=== PATIENT | female | born 1955 | race Caucasian/White ===

== ENCOUNTER 2025-09-12 18:28 | Emergency (ER) | payer MEDICARE, SELFPAY ==
[2025-09-12 18:32] VITALS: BP 134/84; PULSE 87; RESP 17; TEMP 36.4; O2SAT 97; BMI 29.8
--- OUTSIDE RECORDS SUMMARY | 2025-09-12 18:33 | XMS_ITS | Encounter Summary ---
Author Organization [employer] [facility] Address [address] [place] [address] Care Team Providers Care Filling Hauler Weaving Name Role Phone Antwan Brady MD Primary Care Provider Encounter Details Date Type Department Care Team (Latest Contact Info) Description [facility] SHIRT FOLDER [place] [address] [address] [address] [facility] [address] [place] [address] Kvng Suarez MD NO ADDRESS ON FILE ROUTINE BUSINESS INFORMATION MANAGER EXAMINATION (Primary Dx) Social History Tobacco Use Types Packs/Day Years Used Date Smoking Tobacco: Never Assessed Comments Unknown Sex and Gender Information Value Date Recorded Sex Assigned at Not on file Legal Sex Female 4:50 AM OR ASSISTANT Gender Identity Not on file Sexual Orientation Not on file documented as of this encounter Plan of Treatment Not on file documented as of this encounter Visit Diagnoses Diagnosis Routine gynecological examination- Primary documented in this encounter Care Teams Filling Hauler Weaving Relationship Specialty Start Date End Date Antwan Brady MD [address] [facility] [address] [place] [address] PCP - General Family Practice 07/20/14 documented as of this encounter
--- OUTSIDE RECORDS SUMMARY | 2025-09-12 18:33 | XMS_ITS | Encounter Summary ---
Author Organization [facility] Address [address] [place] [address] Care Team Providers Care Groover Operator Name Role Phone Antwan Brady MD Primary Care Provider Encounter Details Date Type Department Care Team (Latest Contact Info) Description 02/20/2007 Outpatient Historical [facility] Allergy and Asthma- [address] [place] [address] Sahil Chairez MD NO ADDRESS ON FILE Allergic Rhinitis, Cause Unspecified (Primary Dx) Social History Tobacco Use Types Packs/Day Years Used Date Smoking Tobacco: Never Assessed Comments Unknown Sex and Gender Information Value Date Recorded Sex Assigned at Not on file Legal Sex Female 4:50 AM AWS SOFTWARE DEVELOPMENT ENGINEER Gender Identity Not on file Sexual Orientation Not on file documented as of this encounter Plan of Treatment Not on file documented as of this encounter Visit Diagnoses Diagnosis Allergic rhinitis, cause unspecified- Primary documented in this encounter Care Teams Groover Operator Relationship Specialty Start Date End Date Antwan Brady MD [address] [place] [address] PCP - General Family Practice 07/20/14 documented as of this encounter
--- OUTSIDE RECORDS SUMMARY | 2025-09-12 18:33 | XMS_ITS | Encounter Summary ---
Author Organization [facility] Address [address] [place] [address] Care Team Providers Care Client Integration Manager Name Role Phone Antwan Brady MD Primary Care Provider Encounter Details Date Type Department Care Team (Latest Contact Info) Description 10/09/2007 Outpatient Historical [facility] Allergy and Asthma- [address] [place] [address] Jean Paul Mina, PAKarliC NO ADDRESS ON FILE Allergic Rhinitis, Cause Unspecified (Primary Dx); Other Diseases of Nasal Cavity and Sinuses; Other Chronic Allergic Conjunctivitis Social History Tobacco Use Types Packs/Day Years Used Date Smoking Tobacco: Never Assessed Comments Unknown Sex and Gender Information Value Date Recorded Sex Assigned at Not on file Legal Sex Female 4:50 AM TYPESETTER PERFORATOR OPERATOR Gender Identity Not on file Sexual Orientation Not on file documented as of this encounter Plan of Treatment Not on file documented as of this encounter Visit Diagnoses Diagnosis Allergic rhinitis, cause unspecified- Primary Other diseases of nasal cavity and sinuses(478.19) Other diseases of nasal cavity and sinuses Other chronic allergic conjunctivitis documented in this encounter Care Teams Client Integration Manager Relationship Specialty Start Date End Date Antwan Brady MD [address] [place] [address] [address] [place] [address] PCP - General Family Practice 07/20/14 documented as of this encounter
--- OUTSIDE RECORDS SUMMARY | 2025-09-12 18:33 | XMS_ITS | Encounter Summary ---
Author Organization [employer] [facility] Address [address] [place] [address] Care Team Providers Care Generation Technologist Name Role Phone Antwan Brady MD Primary Care Provider [phone] Encounter Details Date Type Department Care Team (Latest Contact Info) Description 07/06/2007 Outpatient Historical [facility] GAS ROLLER OPERATOR [place] [address] [address] [facility] [address] [place] [address] Kvng Suarez MD NO ADDRESS ON FILE Routine Gynecological Examination (Primary Dx); Leiomyoma of Uterus, Unspecified Social History Tobacco Use Types Packs/Day Years Used Date Smoking Tobacco: Never Assessed Comments Unknown Sex and Gender Information Value Date Recorded Sex Assigned at Not on file Legal Sex Female 4:50 AM ATTORNEY AT LAW Gender Identity Not on file Sexual Orientation Not on file documented as of this encounter Plan of Treatment Not on file documented as of this encounter Visit Diagnoses Diagnosis Routine gynecological examination- Primary Leiomyoma of uterus, unspecified documented in this encounter Care Teams Generation Technologist Relationship Specialty Start Date End Date Antwan Brady MD [address] [place] [address] [address] [place] [address] PCP - General Family Practice 07/20/14 documented as of this encounter
--- OUTSIDE RECORDS SUMMARY | 2025-09-12 18:33 | XMS_ITS | Encounter Summary ---
Author Organization [facility] Address [address] [facility] Attn: [place] [address] Care Team Providers Care Consulting Marine Engineer Name Role Phone Antwan Brady MD Primary Care Provider [phone] Encounter Details Date Type Department Care Team (Late st Contact Info) Description 06/26/2001 Outpatient Historical Kvng Suarez MD NO ADDRESS ON FILE Social History Tobacco Use Types Packs/Day Years Used Date Smoking Tobacco: Never Assessed Comments Unknown Sex and Gender Information Value Date Recorded Sex Assigned at Not on file Legal Sex Female 4:50 AM STONE DERRICKMAN AND RIGGER Gender Identity Not on file Sexual Orientation Not on file documented as of this encounter Plan of Treatment Not on file documented as of this encounter Visit Diagnoses Not on filedocumented in this encounter Care Teams Consulting Marine Engineer Relationship Specialty Start Date End Date Antwan Brady MD [address] [facility] [address] [place], [place] [address] PCP - General Family Practice 07/20/14 documented as of this encounter
--- OUTSIDE RECORDS SUMMARY | 2025-09-12 18:33 | XMS_ITS | Encounter Summary ---
Author Organization [employer] [facility] Address [address] [place] [address] Care Team Providers Care Dot Compliance Manager Name Role Phone Antwan Brady MD Primary Care Provider Encounter Details Date Type Department Care Team (Late st Contact Info) Description 06/19/2004 Outpatient Historical [facility] SOCIAL WORK FACULTY MEMBER [place] [address] [address] [address] [place] [address] Kvng Suarez MD NO ADDRESS ON FILE Social History Tobacco Use Types Packs/Day Years Used Date Smoking Tobacco: Never Assessed Comments Unknown Sex and Gender Information Value Date Recorded Sex Assigned at Not on file Legal Sex Female 4:50 AM BUFFING AND SUEDING MACHINE OPERATOR Gender Identity Not on file Sexual Orientation Not on file documented as of this encounter Plan of Treatment Not on file documented as of this encounter Visit Diagnoses Not on filedocumented in this encounter Care Teams Dot Compliance Manager Relationship Specialty Start Date End Date Antwan Brady MD [address] [place] [address] PCP - General Family Practice 07/20/14 documented as of this encounter
--- OUTSIDE RECORDS SUMMARY | 2025-09-12 18:33 | XMS_ITS | Encounter Summary ---
Author Organization [employer] [facility] Address [address] [place] [address] Care Team Providers Care Tools And Parts Attendant Name Role Phone Antwan Brady MD Primary Care Provider Encounter Details Date Type Department Care Team (Latest Contact Info) Description 06/06/1999 Outpatient Historical [facility] EKG MONITOR TECH [place] [address] [facility] [address] [facility] [address] [place] [address] Knvg Suarez MD NO ADDRESS ON FILE Gynecologic examination (Primary Dx) Social History Tobacco Use Types Packs/Day Years Used Date Smoking Tobacco: Never Assessed Comments Unknown Sex and Gender Information Value Date Recorded Sex Assigned at Not on file Legal Sex Female 4:50 AM JEWELRY POLISHER Gender Identity Not on file Sexual Orientation Not on file documented as of this encounter Plan of Treatment Not on file documented as of this encounter Visit Diagnoses Diagnosis Gynecologic examination- Primary Gynecological examination documented in this encounter Care Teams Tools And Parts Attendant Relationship Specialty Start Date End Date Antwan Brady MD [address] [facility] [address] [place] [address] PCP - General Family Practice 07/20/14 documented as of this encounter
--- OUTSIDE RECORDS SUMMARY | 2025-09-12 18:33 | XMS_ITS | Encounter Summary ---
Author Organization [facility] Address [address] [place] [address] Care Team Providers Care Target Aircraft Controller Name Role Phone Antwan Brady MD Primary Care Provider [phone] Encounter Details Date Type Department Care Team (Latest Contact Info) Description 12/16/2006 Outpatient Historical [facility] Allergy and Asthma- [address] [place] [address] Sahil Chairez MD NO ADDRESS ON FILE Chronic Rhinitis (Primary Dx) Social History Tobacco Use Types Packs/Day Years Used Date Smoking Tobacco: Never Assessed Comments Unknown Sex and Gender Information Value Date Recorded Sex Assigned at Not on file Legal Sex Female 4:50 AM COLOR RECEIVER Gender Identity Not on file Sexual Orientation Not on file documented as of this encounter Plan of Treatment Not on file documented as of this encounter Visit Diagnoses Diagnosis Chronic rhinitis- Primary documented in this encounter Care Teams Target Aircraft Controller Relationship Specialty Start Date End Date Antwan Brady MD [address] [place] [address] [place] [address] PCP - General Family Practice 07/20/14 documented as of this encounter
--- OUTSIDE RECORDS SUMMARY | 2025-09-12 18:33 | XMS_ITS | Clinical Summary ---
Author Organization [facility] [employer] [place] Address [address] [place] [address] Phone Care Team Providers Care Twx Operator Name Role Phone Antwan Brady MD Primary Care Provider Allergies No known active allergies Medications ZYRTEC PO Take by mouth. Activ e EXCEDRIN MIGRAINE PO Take by mouth. Act donavon azelastine (ASTELIN) 137 mcg Both Nostril SprAIndications :Allergic rhinitis, cause unspecified,Per ennial allergic rhinitis Administer 2 Sprays in each nostril 2 times daily. 1 Bottle 6 0 Active levocetirizine (XYZAL) 5 mg Oral tablet Take 1 Tab by mouth daily. 30 Tab 5 3 Active imiquimod (ALDARA) 5 % Cream in Packet Apply 1 Packet to affected area twice weekly. Up to 16 weeks. 1 Package 0 4 Active Active Problems Problem Noted Date Diagnosed Date AK (actinic keratosis) 06/03/2014 Well woman exam with routine gynecological exam 06/01/2014 Allergic rhinitis due to animal (cat) (dog) hair and dander 12/26/2009 Perennial allergic rhinitis 03/11/2008 Allergic rhinitis, cause unspecified 03/11/2008 Family History Medical History Relation Name Comments Colon Cancer Father Heart Disease Maternal Grandmother Hypertension Maternal Grandmother Diabetes Mother Heart Disease Mother Breast Cancer Other Mat Great GMa Colon Cancer Paternal Aunt Colon Cancer Paternal Grandfather Heart Disease Paternal Grandmother Tuberculosis Paternal Grandmother Colon Cancer Paternal Uncle Relation Name Status Comments Daughter Alive Father Maternal Grandfather Maternal Grandmother Mother Alive Other Mat Great GMa Paternal Aunt Paternal Grandfather Paternal Grandmother Paternal Uncle Sister 1 Alive Sister 2 Alive Son Alive Social History Tobacco Use Types Packs/Day Years Used Date Smoking Tobacco: Never Alcohol Use Standard Drinks/Week Comments No 0 (1 standard drink = 0.6 oz pur e alcohol) Comments No Sex and Gender Information Value Date Recorded Sex Assigned at Not on file Legal Sex Female 4:50 AM STEAM SHOVEL OPERATING ENGINEER Gender Identity Not on file Sexual Orientation Not on file Occupation Industry Job Start Date Job End Date Not on file Not on file Not on file Not on file Last Filed Vital Signs Vital Sign Reading Time Taken Comments Blood Pressure 114/62 07/10/2015 10:14 AM CDT Pulse 71 01/28/2014 10:28 AM STEAM SHOVEL OPERATING ENGINEER Temperature 36.1 C (96.9 F) 01/28/2014 8:40 AM STEAM SHOVEL OPERATING ENGINEER Respiratory Rate 16 01/28/2014 10:28 AM STEAM SHOVEL OPERATING ENGINEER Oxygen Saturation 99% 01/28/2014 10:28 AM STEAM SHOVEL OPERATING ENGINEER Inhaled Oxygen Concentration - - Weight 91.6 kg (202 lb) 07/10/2015 10:14 AM CDT Height 167.6 cm (5' 6 ) 07/10/2015 10:14 AM CDT Body Mass Index 32.6 07/10/2015 10:14 AM CDT Plan of Treatment Health Maintenance Due Date Last Done Comments DTAP/TDAP/TD VACCINES (1 - Tdap) 1975 FIT-DNA Q 3 years 2001 FIT/FOBT Q 1 year 2001 Flex Sig/CT Colonography Q 5 years 2001 PNEUMOCOCCAL VACCINE 50+ YEA RS (1 of 1 - PCV) 2006 ZOSTER VACCINE (1 of 2) 2006 BREAST CANCER SCREENING 07/21/2015 07/21/2014, 06/29 COLORECTAL SCREENING 01/28/2019 01/28/2014, 01/28/2014, 11/15/2008, Additional history exists Colorectal Cancer Screening 01/28/2019 OSTEOPOROSIS SCREENING 2021 INFLUENZA VACCINE (#1) 2025 RSV VACCINE (60+ or ) (1 - 1-dose 75+ series) 2031 Procedures Procedure Name Priority Date/Time Associated Diagnosis Comments MAMMO DIAGNOSTIC UNI RIGHT W OR WO CAD Routine 07/21/2014 1:51 PM CDT Other (abnormal) findings on radiological examination of breast ENDOSCOPY, COLON, SCREENING Routine 01/28/2014 8:26 AM STEAM SHOVEL OPERATING ENGINEER Family history of colon cancer from Last 3 Months or Most Recently Relevant to Health Maintenance Results * MAMMO DIGITAL DIAG UNI RIGHT (07/21/2014 1:51 PM CDT) Anatomical Region Laterality Modality Breast Right Mammography 07/21/2014 1:21 PM CDT Impressions 07/24/2014 11:36 PM CDT IMPRESSION: No mammographic or sonographic evidence to suggest malignancy. RECOMMENDATION: Yearly screening mammogram. Findings and recommendation discussed with the patient at the time of exam. Patient received the result and recommendation letter. ANA CRISTINA/ronald - uploaded from [employer] 07/24/2014 11:36 PM CDT RIGHT DIAGNOSTIC MAMMOGRAM AND BREAST ULTRASOUND: REASON FOR EXAM: Recall for nodular density upper inner quadrant and round nodule upper outer quadrant posteriorly, possible lymph node, on right breast screening 06/29/2014. IMAGING PERFORMED: Right ML and XCC views, and right ML, CC and XCC spot compression. Right breast ultrasound. COMPARISON(S): 06/29/2014. No other prior study available. MAMMOGRAPHIC FINDINGS: RIGHT BREAST: The upper inner quadrant nodular density effaces with diagnostic imaging consistent with summation artifact on screening. The round nodule in the upper outer quadrant 10 o'clock region near the axillary tail persists with question of internal fat. ULTRASOUND FINDINGS: RIGHT BREAST: In the 10 o'clock position 7 cm from the nipple, a correlating less than 6 mm maximum diameter benign intramammary lymph node is seen. No suspicious finding. Procedure Note Jeramy Carmichael MD - 07/24/2014 RIGHT DIAGNOSTIC MAMMOGRAM AND BREAST ULTRASOUND: REASON FOR EXAM: Recall for nodular density upper inner quadrant and round nodule upper outer quadrant posteriorly, possible lymph node, on right breast screening 06/29/2014. IMAGING PERFORMED: Right ML and XCC views, and right ML, CC and XCC spot compression. Right breast ultrasound. COMPARISON(S): 06/29/2014. No other prior study available. MAMMOGRAPHIC FINDINGS: RIGHT BREAST: The upper inner quadrant nodular density effaces with diagnostic imaging consistent with summation artifact on screening. The round nodule in the upper outer quadrant 10 o'clock region near the axillary tail persists with question of internal fat. ULTRASOUND FINDINGS: RIGHT BREAST: In the 10 o'clock position 7 cm from the nipple, a correlating less than 6 mm maximum diameter benign intramammary lymph node is seen. No suspicious finding. IMPRESSION IMPRESSION: No mammographic or sonographic evidence to suggest malignancy. RECOMMENDATION: Yearly screening mammogram. Findings and recommendation discussed with the patient at the time of exam. Patient received the result and recommendation letter. ANA CRISTINA/ronald - uploaded from [employer] - us Cristina Smith MD MAMMO ORDERABLES Final Res ult * ENDOSCOPY, COLON, MEDICARE SCREENING (11/15/2008) us Navarro Lester MD GI PROCEDURE ORDERABLES Fin al Result from Last 3 Months or Most Recently Relevant to Health Maintenance Insurance [place] [employer] Advance Directives For more information, please contact: [phone] * Full Code (Latest Code Status on File) Date Activated Date Inactivated Comments 01/28/2014 8:27 AM 01/28/2014 12:41 PM Care Teams Twx Operator Relationship Specialty Start Date End Date Antwan Brady MD [address] [place] [address] [place] [address] PCP - General Family Practice 07/20/14
--- OUTSIDE RECORDS SUMMARY | 2025-09-12 18:33 | XMS_ITS | Encounter Summary ---
Author Organization [employer] [facility] Address [address] [place] [address] Care Team Providers Care It Systems Analyst Consultant Name Role Phone Antwan Brady MD Primary Care Provider Encounter Details Date Type Department Care Team (Late st Contact Info) Description 07/06/2007 Outpatient Historical [facility] INTENSIVE CARE MEDICINE SPECIALIST [place] [address] [address] [facility] [place] [address] Kvng Suarez MD NO ADDRESS ON FILE Social History Tobacco Use Types Packs/Day Years Used Date Smoking Tobacco: Never Assessed Comments Unknown Sex and Gender Information Value Date Recorded Sex Assigned at Not on file Legal Sex Female 4:50 AM CREDIT ADJUSTER Gender Identity Not on file Sexual Orientation Not on file documented as of this encounter Plan of Treatment Not on file documented as of this encounter Visit Diagnoses Not on filedocumented in this encounter Care Teams It Systems Analyst Consultant Relationship Specialty Start Date End Date Antwan Brady MD [address] [place] [place] [address] PCP - General Family Practice 07/20/14 documented as of this encounter
--- OUTSIDE RECORDS SUMMARY | 2025-09-12 18:33 | XMS_ITS | Encounter Summary ---
Author Organization [employer] [facility] Address [address] [place] [address] Care Team Providers Care Exhibit Preparator Name Role Phone Antwan Brady MD Primary Care Provider Encounter Details Date Type Department Care Team (Late st Contact Info) Description 2005 Outpatient Historical [facility] PANAMA HAT BLOCKER [place] [address] [facility] [facility] [address] [place] [address] Kvng Suarez MD NO ADDRESS ON FILE Social History Tobacco Use Types Packs/Day Years Used Date Smoking Tobacco: Never Assessed Comments Unknown Sex and Gender Information Value Date Recorded Sex Assigned at Not on file Legal Sex Female 4:50 AM CRITICAL CARE PHYSICIAN Gender Identity Not on file Sexual Orientation Not on file documented as of this encounter Plan of Treatment Not on file documented as of this encounter Visit Diagnoses Not on filedocumented in this encounter Care Teams Exhibit Preparator Relationship Specialty Start Date End Date Antwan Brady MD [address] [place] [address] PCP - General Family Practice 07/20/14 documented as of this encounter
--- OUTSIDE RECORDS SUMMARY | 2025-09-12 18:33 | XMS_ITS | Encounter Summary ---
Author Organization [employer] [facility] Address [address] [place] [address] Care Team Providers Care Window Cutter Name Role Phone Antwan Brady MD Primary Care Provider Encounter Details Date Type Department Care Team (Latest Contact Info) Description 06/16/2006 Outpatient Historical [facility] BILINGUAL ADMINISTRATIVE ASSISTANT [place] [address] [address] [place] [address] Kvng Suarez MD NO ADDRESS ON FILE Routine Gynecological Examination (Primary Dx) Social History Tobacco Use Types Packs/Day Years Used Date Smoking Tobacco: Never Assessed Comments Unknown Sex and Gender Information Value Date Recorded Sex Assigned at Not on file Legal Sex Female 4:50 AM RADIOGRAPHER ANGIOGRAM Gender Identity Not on file Sexual Orientation Not on file documented as of this encounter Plan of Treatment Not on file documented as of this encounter Visit Diagnoses Diagnosis Routine gynecological examination- Primary documented in this encounter Care Teams Window Cutter Relationship Specialty Start Date End Date Antwan Brady MD [address] [facility] [address] [place] [address] PCP - General Family Practice 07/20/14 documented as of this encounter
--- OUTSIDE RECORDS SUMMARY | 2025-09-12 18:33 | XMS_ITS | Encounter Summary ---
Author Organization [facility] Address [address] [place] [address] Care Team Providers Care Director Of Child Welfare Services Name Role Phone Antwan Brady MD Primary Care Provider Encounter Details Date Type Department Care Team (Late st Contact Info) Description 04/20/2002 Outpatient Historical [facility] Gastroenterology- [place] [address] [facility] [address] [place] [address] Navarro Lester MD NO ADDRESS ON FILE FAMILY HX GI MALIGNANCY (Primary Dx) Social History Tobacco Use Types Packs/Day Years Used Date Smoking Tobacco: Never Assessed Comments Unknown Sex and Gender Information Value Date Recorded Sex Assigned at Not on file Legal Sex Female 4:50 AM DORMITORY MAID Gender Identity Not on file Sexual Orientation Not on file documented as of this encounter Plan of Treatment Not on file documented as of this encounter Visit Diagnoses Diagnosis Family history of malignant neoplasm of gastrointestinal tract- Primary documented in this encounter Care Teams Director Of Child Welfare Services Relationship Specialty Start Date End Date Antwan Brady MD [address] [facility] [address] [place] [address] PCP - General Family Practice 07/20/14 documented as of this encounter
--- OUTSIDE RECORDS SUMMARY | 2025-09-12 18:33 | XMS_ITS | Encounter Summary ---
Author Organization [employer] [facility] Address [address] [place] [address] Care Team Providers Care Flour Mixer Helper Name Role Phone Antwan Brady MD Primary Care Provider Encounter Details Date Type Department Care Team (Latest Contact Info) Description 06/26/2001 Outpatient Historical [facility] TRACTOR DRIVER TEAMSTER [address] [place] [address] Kvng Suarez MD NO ADDRESS ON FILE Gynecologic examination (Primary Dx) Social History Tobacco Use Types Packs/Day Years Used Date Smoking Tobacco: Never Assessed Comments Unknown Sex and Gender Information Value Date Recorded Sex Assigned at Not on file Legal Sex Female 4:50 AM PSYCHIATRY INSTRUCTOR Gender Identity Not on file Sexual Orientation Not on file documented as of this encounter Plan of Treatment Not on file documented as of this encounter Visit Diagnoses Diagnosis Gynecologic examination- Primary Gynecological examination documented in this encounter Care Teams Flour Mixer Helper Relationship Specialty Start Date End Date Antwan Brady MD [address] [facility] [address] [place] [address] PCP - General Family Practice 07/20/14 documented as of this encounter
--- OUTSIDE RECORDS SUMMARY | 2025-09-12 18:33 | XMS_ITS | Encounter Summary ---
Author Organization [employer] [facility] Address [address] [place] [address] Care Team Providers Care Teaching Fellow Name Role Phone Antwan Brady MD Primary Care Provider Encounter Details Date Type Department Care Team (Late st Contact Info) Description 06/14/2003 Outpatient Historical [facility] BLOCK OPERATOR [place] [address] [facility] [address] [place] [address] Kvng Suarez MD NO ADDRESS ON FILE Social History Tobacco Use Types Packs/Day Years Used Date Smoking Tobacco: Never Assessed Comments Unknown Sex and Gender Information Value Date Recorded Sex Assigned at Not on file Legal Sex Female 4:50 AM TRAVEL REGISTERED NURSE NICU Gender Identity Not on file Sexual Orientation Not on file documented as of this encounter Plan of Treatment Not on file documented as of this encounter Visit Diagnoses Not on filedocumented in this encounter Care Teams Teaching Fellow Relationship Specialty Start Date End Date Antwan Brady MD [address] [place] [address] PCP - General Family Practice 07/20/14 documented as of this encounter
--- OUTSIDE RECORDS SUMMARY | 2025-09-12 18:33 | XMS_ITS | Encounter Summary ---
Author Organization [facility] Address [address] [facility] Attn: [place] [address] Care Team Providers Care Client Technical Support Associate Name Role Phone Antwan Brady MD Primary Care Provider Encounter Details Date Type Department Care Team (Late st Contact Info) Description 11/15/2008 Outpatient Historical Kvng Suarez MD NO ADDRESS ON FILE Routine Gynecological Examination Social History Tobacco Use Types Packs/Day Years Used Date Smoking Tobacco: Never Alcohol Use Standard Drinks/Week Comments No 0 (1 standard drink = 0.6 oz pur e alcohol) Comments No Sex and Gender Information Value Date Recorded Sex Assigned at Not on file Legal Sex Female 4:50 AM RN TEACHER Gender Identity Not on file Sexual Orientation Not on file documented as of this encounter Plan of Treatment Not on file documented as of this encounter Procedures Procedure Name Priority Date/Time Associated Diagnosis Comments PATHOLOGY Routine 11/15/2008 3:22 PM RN TEACHER documented in this encounter Results * PATHOLOGY (11/15/2008 3:22 PM RN TEACHER) PATHOLOGY/CY TOLOGY REPORT [facility] Anatomic Pathology Dept [facility] Farhat Javier [facility] [address] Patient: JESÚS BUCHANAN [facility] No: [id number] Collected: 11/15/2008 3:22:00 PM CYTOLOGY MOTORCYCLE MECHANIC APPRENTICE FINAL REPORT - - ASSEMBLY STOCK SUPERVISOR PAP History Specimen Source: cervical LMP: 08/07/08 Last Pap Date: 2006 WNL Specimen Adequacy Satisfactory for interpretation. The smear shows sufficient numbers of endocervical or metaplastic cells. Diagnosis NEGATIVE FOR INTRAEPITHELIAL LESION OR MALIGNANCY. (Previously noted as Within Normal Limits) First Beater MILIND 11/28/08 Completed by: FELICIA MANRIQUEZ BSJOSE(ASCP) (Electronically signed by) 11/28/08 Comment Routine follow-up is suggested. Important Info About Pap Smears HPV Testing off the Thin Prep vial can be done as a means of further evaluating a Thin Prep Report. For information about ordering the HPV test, phone Cytology at . Treatment or follow-up recommendations (if any) that are considered within this report are based upon general recommendations as contained in 2001 Consensus Guidelines For Cervical Cytological Abnormalities ZACHARY: March 24, 2002, and are provided as a general guideline rather than as a specific recommendation. Final decisions about the most appropriate treatment and follow-up should be made on an individualized basis by the treating physician in consultation with his/her patient. INTERFACE SYSTEM 11/15/2008 3:22 PM RN TEACHER us Kvng Suarez MD PATHOLOGY/CYTOLOGY ORDERAB LES Edited INTERFACE SYSTEM Refer to clinic/hospital department documented in this encounter Visit Diagnoses Diagnosis Routine gynecological examination documented in this encounter Care Teams Client Technical Support Associate Relationship Specialty Start Date End Date Antwan Brady MD [address] [place] [address] [address] [place] [address] PCP - General Family Practice 07/20/14 documented as of this encounter
--- OUTSIDE RECORDS SUMMARY | 2025-09-12 18:33 | XMS_ITS | Encounter Summary ---
Author Organization [facility] Address [address] [place] [address] Care Team Providers Care Manager Marketing Communication Name Role Phone Antwan Brady MD Primary Care Provider Encounter Details Date Type Department Care Team (Latest Contact Info) Description 12/23/2006 Outpatient Historical [facility] [address] [place] [address] Jean Paul Mina, PAKarliC NO ADDRESS ON FILE Allergic Rhinitis, Cause Unspecified (Primary Dx); Other Diseases of Nasal Cavity and Sinuses; Other Chronic Allergic Conjunctivitis Social History Tobacco Use Types Packs/Day Years Used Date Smoking Tobacco: Never Assessed Comments Unknown Sex and Gender Information Value Date Recorded Sex Assigned at Not on file Legal Sex Female 4:50 AM CNMT Gender Identity Not on file Sexual Orientation Not on file documented as of this encounter Plan of Treatment Not on file documented as of this encounter Visit Diagnoses Diagnosis Allergic rhinitis, cause unspecified- Primary Other diseases of nasal cavity and sinuses(478.19) Other diseases of nasal cavity and sinuses Other chronic allergic conjunctivitis documented in this encounter Care Teams Manager Marketing Communication Relationship Specialty Start Date End Date Antwan Brady MD [address] [place] [address] [address] [place] [address] PCP - General Family Practice 07/20/14 documented as of this encounter
--- OUTSIDE RECORDS SUMMARY | 2025-09-12 18:33 | XMS_ITS | Clinical Summary ---
Author Organization [facility] [place] Address [address] [facility] [address] [place]: [place] [address] Care Team Providers Care Corporate Legal Assistant Name Role Phone Antwan Brady MD Primary Care Provider Allergies No known active allergies Active Problems Problem Noted Date Diagnosed Date AK (actinic keratosis) 06/03/2014 Well woman exam with routine gynecological exam 06/01/2014 Allergic rhinitis due to animal (cat) (dog) hair and dander 12/26/2009 Allergic rhinitis, cause unspecified 03/11/2008 Perennial allergic rhinitis 03/11/2008 Family History Medical History Relation Name [...] = 0.6 oz pur e alcohol) Comments Unknown Sex and Gender Information Value Date Recorded Sex Assigned at Not on file Legal Sex Female 12:20 AM 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 FACTORY WORKER Gender Identity Not on file Sexual Orientation Not on file Last Filed Vital Signs Vital Sign Reading Time Taken Comments Blood Pressure 114/62 07/10/2015 10:14 AM CDT Pulse - - Temperature - - Respiratory Rate - - Oxygen Saturation - - Inhaled Oxygen Concentration - - Weight 91.6 [...] 07/21/2014, 06/29 COLORECTAL SCREENING 01/28/2019 01/28/2014, 01/28/2014, 11/15/2008 Colorectal Cancer Screening 01/28/2019 OSTEOPOROSIS SCREENING 2021 INFLUENZA VACCINE (#1) 2025 RSV VACCINE (60+ or ) (1 - 1-dose 75+ series) 2031 Procedures Procedure Name Priority Date/Time Associated Diagnosis Comments MAMMO DIAGNOSTIC UNI RIGHT W OR WO CAD Routine 07/21/2014 1:51 PM CDT Other (abnormal) findings on radiological examination of breast from Last 3 Months or Most Recently Relevant to Health Maintenance Results * MAMMO DIAGNOSTIC UNI RIGHT W OR WO CAD (07/21/2014 1:51 PM CDT) Anatomical Region Laterality Modality Breast Right Other Impressions 07/24/2014 11:35 PM CDT No mammographic or sonographic evidence to suggest malignancy. RECOMMENDATION: Yearly screening mammogram. Findings and recommendation discussed with the patient at the time of exam. Patient received the result and recommendation letter. ANA CRISTINA/ronald - uploaded from [employer] - Narrative 07/24/2014 11:35 PM CDT RIGHT DIAGNOSTIC MAMMOGRAM AND BREAST [...] finding. Procedure Note Jeramy Carmichael MD - 02/03/2023 RIGHT DIAGNOSTIC MAMMOGRAM AND BREAST ULTRASOUND: REASON [...] node is seen. No suspicious finding. IMPRESSION No mammographic or sonographic evidence to suggest malignancy. RECOMMENDATION: Yearly screening mammogram. Findings and recommendation discussed with the patient at the time of exam. Patient received the result and recommendation letter. ANA CRISTINA/ronald - uploaded from [employer] - us Cristina Smith MD MAMMO ORDERABLES Final Res ult from Last 3 Months or Most Recently Relevant to Health Maintenance Care Teams Corporate Legal Assistant Relationship Specialty Start Date End Date Antwan Brady MD [address] [place] [address] [place] [address] PCP - General Family Practice 07/20/14
--- OUTSIDE RECORDS SUMMARY | 2025-09-12 18:33 | XMS_ITS | Encounter Summary ---
Author Organization [facility] Address [address] [facility] [address] 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
--- OUTSIDE RECORDS SUMMARY | 2025-09-12 18:33 | XMS_ITS | Encounter Summary ---
Author Organization [facility] Address [address] [facility] Attn: [place] [address] Care Team Providers Care Him Clerk Name Role Phone Antwan Brady MD Primary Care Provider Encounter Details Date Type Department Care Team (Late st Contact Info) Description 06/22/2002 Outpatient Historical Kvng Suarez MD NO ADDRESS ON FILE Social History Tobacco Use Types Packs/Day Years Used Date Smoking Tobacco: Never Assessed Comments Unknown Sex and Gender Information Value Date Recorded Sex Assigned at Not on file Legal Sex Female 4:50 AM WIRELESS CONSULTANT Gender Identity Not on file Sexual Orientation Not on file documented as of this encounter Plan of Treatment Not on file documented as of this encounter Visit Diagnoses Not on filedocumented in this encounter Care Teams Him Clerk Relationship Specialty Start Date End Date Antwan Brady MD [address] [facility] [address] [place], [place] [address] PCP - General Family Practice 07/20/14 documented as of this encounter
--- OUTSIDE RECORDS SUMMARY | 2025-09-12 18:33 | XMS_ITS | Encounter Summary ---
Author Organization [employer] [facility] Address [address] [place] [address] Care Team Providers Care Sheltered Workshop Worker Name Role Phone Antwan Brady MD Primary Care Provider Encounter Details Date Type Department Care Team (Latest Contact Info) Description 06/06/1998 Outpatient Historical [facility] Kvng Suarez MD NO ADDRESS ON FILE Gynecologic examination (Primary Dx); Surveillance of previously prescribed contraceptive pill Social History Tobacco Use Types Packs/Day Years Used Date Smoking Tobacco: Never Assessed Comments Unknown Sex and Gender Information Value Date Recorded Sex Assigned at Not on file Legal Sex Female 4:50 AM 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
--- OUTSIDE RECORDS SUMMARY | 2025-09-12 18:33 | XMS_ITS | Encounter Summary ---
Author Organization [employer] [facility] Address [address] [place] [address] Care Team Providers Care Business Management Specialist Name Role Phone Antwan Brady MD Primary Care Provider Encounter Details Date Type Department Care Team (Late st Contact Info) Description 06/16/2006 Outpatient Historical [facility] SULPHATE TESTER [place] [address] [place] [address] Kvng Suarez MD NO ADDRESS ON FILE Social History Tobacco Use Types Packs/Day Years Used Date Smoking Tobacco: Never Assessed Comments Unknown Sex and Gender Information Value Date Recorded Sex Assigned at Not on file Legal Sex Female 4:50 AM 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
--- OUTSIDE RECORDS SUMMARY | 2025-09-12 18:33 | XMS_ITS | Encounter Summary ---
Author Organization [facility] Address [address] [place] [address] Care Team Providers Care Bolt Sorter Name Role Phone Antwan Brady MD Primary Care Provider Encounter Details Date Type Department Care Team (Late st Contact Info) Description 11/02/2008 Outpatient Historical [facility] Maria De Jesus [address] [place] [address] Navarro Lester MD NO ADDRESS ON FILE Internal Hemorrhoids without Mention of Complication Social History Tobacco Use Types Packs/Day Years Used Date Smoking Tobacco: Never Assessed Comments Unknown Sex and Gender Information Value Date Recorded Sex Assigned at Not on file Legal Sex Female 4:50 AM 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
--- OUTSIDE RECORDS SUMMARY | 2025-09-12 18:33 | XMS_ITS | Encounter Summary ---
Author Organization [facility] Address [address] [place] [address] Care Team Providers Care Coil Maker Name Role Phone Antwan Brady MD Primary Care Provider [phone] Reason for Referral * Outpatient Services (Routine) - Closed Specialty Diagnoses / Procedures Referred By Contac t Referred To Contact Radiology Diagnoses Other (abnormal) findings on radiological examination of breast Procedures MAMMO BREAST US RT Cristina Smith MD [address] [facility] [address] [place] [address] Phone: tel: fax: [facility] [address] [facility] [address] [place] [address] Phone: tel: fax: Referral ID Status Reason Start Date Expiration Date Visits Requested Visits Authorized [id number] Closed Performing Department To Schedule (SGF) 07/04/2014 08/04/2015 1 1 * Outpatient Services (Routine) - Closed Specialty Diagnoses / Procedures Referred By Contac t Referred To Contact Radiology Diagnoses Other (abnormal) findings on radiological examination of breast Procedures MAMMO DIGITAL DIAG UNI RIGHT Cristina Smith MD [address] [facility] [place] [address] [place] [address] Phone: tel: fax: [facility] [address] [facility] [address] [place] [address] Phone: tel: fax: Referral ID Status Reason Start Date Expiration Date Visits Requested Visits Authorized [id number] Closed Performing Department To Schedule (SGF) 07/04/2014 08/04/2015 1 1 Encounter Details Date Type Department Care Team (Late st Contact Info) Description 07/04/2014 Ancillary Orders [facility] [address] [facility] [address] [place] [address] Cristina Smith MD [address] [facility] [facility] [address] [place] [address] Other (abnormal) findings on radiological examination of breast (Primary Dx) Social History Tobacco Use Types Packs/Day Years Used Date Smoking Tobacco: Never Alcohol Use Standard Drinks/Week Comments No 0 (1 standard drink = 0.6 oz pur e alcohol) Comments No Sex and Gender Information Value Date Recorded Sex Assigned at Not on file Legal Sex Female 4:50 AM CHRISTIAN EDUCATION DIRECTOR Gender Identity Not on file Sexual Orientation Not on file Occupation Industry Job Start Date Job End Date Not on file Not on file Not on file Not on file documented as of this encounter Plan of Treatment Not on file documented as of this encounter Results * MAMMO BREAST US RT (07/21/2014 2:09 PM CDT) Anatomical Region Laterality Modality Breast Right Ultrasound 07/21/2014 1:53 PM CDT Impressions 07/24/2014 11:36 PM CDT IMPRESSION: No mammographic or sonographic evidence to suggest malignancy. RECOMMENDATION: Yearly screening mammogram. Findings and recommendation discussed with the patient at the time of exam. Patient received the result and recommendation letter. Landy - uploaded from [employer] 07/24/2014 11:36 PM CDT RIGHT DIAGNOSTIC MAMMOGRAM [...] Patient received the result and recommendation letter. Landy - uploaded from [employer] - us Cristina Smith MD MAMMO ORDERABLES Final Res ult * MAMMO DIGITAL DIAG UNI RIGHT (07/21/2014 1:51 PM CDT) Anatomical Region Laterality Modality Breast Right Mammography 07/21/2014 1:21 PM CDT Impressions 07/24/2014 11:36 PM CDT IMPRESSION: No mammographic or sonographic evidence to suggest malignancy. RECOMMENDATION: Yearly screening mammogram. Findings and recommendation discussed with the patient at the time of exam. Patient received the result and recommendation letter. ANA CRISTINA/ronald - uploaded from [employer] - Narrative 07/24/2014 11:36 PM CDT RIGHT DIAGNOSTIC MAMMOGRAM [...] Patient received the result and recommendation letter. ROMEROC/ronald - uploaded from [employer] - us Cristina Smith MD MAMMO ORDERABLES Final Res ult documented in this encounter Visit Diagnoses Diagnosis Other (abnormal) findings on radiological examination of breast- Primary Other (abnormal) findings on radiological examination of breast Other (abnormal) findings on radiological examination of breast documented in this encounter Care Teams Coil Maker Relationship Specialty Start Date End Date Antwan Brady MD [address] [place] [address] [place] [id number] PCP - General Family Practice 07/20/14 documented as of this encounter
--- OUTSIDE RECORDS SUMMARY | 2025-09-12 18:33 | XMS_ITS | Encounter Summary ---
Author Organization [facility] Address [address] [place] [address] Care Team Providers Care Collar Shaper Operator Name Role Phone Antwan Brady MD Primary Care Provider Encounter Details Date Type Department Care Team (Latest Contact Info) Description 06/19/2004 Outpatient Historical [facility] RADIO PERFORMER [address] [place] [address] Kvng Suarez MD NO ADDRESS ON FILE Gynecologic examination (Primary Dx) Social History Tobacco Use Types Packs/Day Years Used Date Smoking Tobacco: Never Assessed Comments Unknown Sex and Gender Information Value Date Recorded Sex Assigned at Not on file Legal Sex Female 4:50 AM SENIOR ANIMAL TRAINER Gender Identity Not on file Sexual Orientation Not on file documented as of this encounter Plan of Treatment Not on file documented as of this encounter Visit Diagnoses Diagnosis Gynecologic examination- Primary Gynecological examination documented in this encounter Care Teams Collar Shaper Operator Relationship Specialty Start Date End Date Antwan Brayd MD [address] [facility] [address] [place] [address] PCP - General Family Practice 07/20/14 documented as of this encounter
--- OUTSIDE RECORDS SUMMARY | 2025-09-12 18:33 | XMS_ITS | Encounter Summary ---
Author Organization [employer] [facility] Address [address] [place] [address] Care Team Providers Care Vending Technician Name Role Phone Antwan Brady MD Primary Care Provider Encounter Details Date Type Department Care Team (Latest Contact Info) Description 06/16/2000 Outpatient Historical [facility] DIGITAL PRE PRESS OPERATOR [address] [place] [address] Kvng Suarez MD NO ADDRESS ON FILE Gynecologic examination (Primary Dx) Social History Tobacco Use Types Packs/Day Years Used Date Smoking Tobacco: Never Assessed Comments Unknown Sex and Gender Information Value Date Recorded Sex Assigned at Not on file Legal Sex Female 4:50 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
--- OUTSIDE RECORDS SUMMARY | 2025-09-12 18:33 | XMS_ITS | Encounter Summary ---
Author Organization [facility] Address [address] [place] [address] Care Team Providers Care Hotbed Operator Name Role Phone Antwan Brady MD Primary Care Provider Encounter Details Date Type Department Care Team (Latest Contact Info) Description 07/21/2007 Outpatient Historical [facility] [address] [place] [address] Jean Paul Mina, PAKarliC NO ADDRESS ON FILE Allergic Rhinitis, Cause Unspecified (Primary Dx); Other Chronic Allergic Conjunctivitis; Other Diseases of Nasal Cavity and Sinuses Social History Tobacco Use Types Packs/Day Years Used Date Smoking Tobacco: Never Assessed Comments Unknown Sex and Gender Information Value Date Recorded Sex Assigned at Not on file Legal Sex Female 4:50 AM JEWELRY DRILL OPERATOR Gender Identity Not on file Sexual Orientation Not on file documented as of this encounter Plan of Treatment Not on file documented as of this encounter Visit Diagnoses Diagnosis Allergic rhinitis, cause unspecified- Primary Other chronic allergic conjunctivitis Other diseases of nasal cavity and sinuses(478.19) Other diseases of nasal cavity and sinuses documented in this encounter Care Teams Hotbed Operator Relationship Specialty Start Date End Date Antwan Brady MD [address] [place] [address] [address] [place] [address] PCP - General Family Practice 07/20/14 documented as of this encounter
--- OUTSIDE RECORDS SUMMARY | 2025-09-12 18:33 | XMS_ITS | Encounter Summary ---
Author Organization [employer] [facility] Address [address] [place] [address] Care Team Providers Care Fondant Machine Operator Name Role Phone Antwan Brady MD Primary Care Provider Encounter Details Date Type Department Care Team (Latest Contact Info) Description 06/14/2003 Outpatient Historical [facility] TOLL GATE KEEPER [address] [place] [address] Kvng Suarez MD NO ADDRESS ON FILE Gynecologic examination (Primary Dx) Social History Tobacco Use Types Packs/Day Years Used Date Smoking Tobacco: Never Assessed Comments Unknown Sex and Gender Information Value Date Recorded Sex Assigned at Not on file Legal Sex Female 4:50 AM DEPUTY SHERIFF 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
--- OUTSIDE RECORDS SUMMARY | 2025-09-12 18:33 | XMS_ITS | Encounter Summary ---
Author Organization [employer] [facility] Address [address] [place] [address] Care Team Providers Care Claims Analyst Name Role Phone Antwan Brady MD Primary Care Provider Encounter Details Date Type Department Care Team (Latest Contact Info) Description 06/22/2002 Outpatient Historical [facility] AIRPORT OPERATIONS OFFICER [place] [address] [place] [address] Kvng Suarez MD NO ADDRESS ON FILE Gynecologic examination (Primary Dx) Social History Tobacco Use Types Packs/Day Years Used Date Smoking Tobacco: Never Assessed Comments Unknown Sex and Gender Information Value Date Recorded Sex Assigned at Not on file Legal Sex Female 4:50 AM BI MANAGER Gender Identity Not on file Sexual Orientation Not on file documented as of this encounter Plan of Treatment Not on file documented as of this encounter Visit Diagnoses Diagnosis Gynecologic examination- Primary Gynecological examination documented in this encounter Care Teams Claims Analyst Relationship Specialty Start Date End Date Antwan Brady MD [address] [facility] [address] [place] [address] PCP - General Family Practice 07/20/14 documented as of this encounter
--- NOTE | 2025-09-12 18:45 | XRR_ITS ---
PROCEDURE INFORMATION: Exam: XR Left Knee Exam date and time: 09/12/2025 6:46 PM Age: 70 years old Clinical indication: Pain; Knee; Left; Additional info: Pain since this am TECHNIQUE: Imaging protocol: Radiologic exam of the left knee. Views: 3 views. COMPARISON: No relevant prior studies available. FINDINGS: Bones/joints: No acute fracture or subluxation. Soft tissues: Normal. Other findings: Flabella. XR/XR knee LT 3V* [id number] IMPRESSION: No acute fracture or subluxation.
--- NOTE | 2025-09-12 19:21 | ED_ITS ---
HPI - Extremity Problem General: Chief complaint: Extremity Injury, Lower Stated complaint: Lt knee pain Time Seen by Provider: 09/12/25 18:34 Source: patient Mode of arrival: ambulatory Limitations: no limitations History of Present Illness: Patient is a 70-year-old female who presents emergency department complaining of left knee beginning this morning. Says that she woke up with the pain, does not recall any injury specifically or direct trauma. Notes that the pain is worse with walking/weightbearing. Ambulatory to the ER without difficulty. Denies any fevers, nausea/vomiting, redness, or swelling to the knee. States that she is concerned of a blood clot, though notes that the pain is primarily to the anterior knee joint. No pain in her calf, no calf swelling or peripheral pallor/coolness/paralysis. Denies history of arthritis. No previous knee operations. MD Complaint: joint pain Onset (ago): hour(s) Pain Consistency: constant Location: left and knee Radiation: none Exacerbating factors: weight bearing and walking Associated symptoms: Deny chest pain, fever(s) or rash Related Data Previous Rx's ?Medication ?Instructions ?Recorded ketorolac 10 mg tablet 10 mg PO Q8H PRN pain 5 days #15 09/12/25 tabs prednisone 10 mg tablets in a dose 10 mg PO DIRECTE D #21 ea 09/12/25 pack Allergies Allergy/AdvReac Type Severity Reaction Status Date / Time No Known Allergies Allergy Verified 09/12/25 18:36 Review of Systems General: Reports: 10 or more systems reviewed and unremarkable except in HPI and below Const: Denies: fever(s) or chills Card: Denies: chest pain Resp: Denies: dyspnea or productive cough GI: Denies: abdominal pain, nausea, vomiting or diarrhea : Denies: flank pain Musc: Reports: joint pain (left knee); Denies: neck pain, back pain, extremity pain, extremity swelling, joint swelling, joint redness, joint warmth, limited range of motion or muscle weakness Skin/Breast: Denies: rash Neuro: Denies: headache(s), numbness in extremities or weakness in extremities Physical Exam Const: COMMON NORMALS: no acute distress, patient oriented x3, no limitations, healthy appearing, alert and well nourished HENMT: COMMON NORMALS: normocephalic and atraumatic HEAD & SCALP: normocephalic and atraumatic Neck/C-Spine: COMMON NORMALS: full ROM, supple and no meningeal signs Extremity: COMMON NORMALS: normal to inspection, full ROM, capillary refill normal, no joint enlargement and no clubbing, cyanosis or edema NARRATIVE EXTREMITY EXAM: Tender to palpation to left quad tendon. Mild tenderness palpation left medial joint line of left knee. There is no swelling or bruising. It is not warm to the touch. Full range of motion. Distal neurovascular exam is normal, there is no pallor or coolness. Negative Homans' sign. Distal pulses palpable. Neuro: COMMON NORMALS: patient oriented x3, moves all extremities, no focal motor deficits and no sensory deficits noted SENSORIUM/ORIENTATION: Yes alert MENINGEAL SIGNS: Yes no meningeal signs Skin: COMMON NORMALS: no rashes or lesions noted GENERAL SKIN EXAM: no rashes or lesions noted Course Vital Signs: Vital signs: Vital Signs Temperature 97.6 F 09/12/25 18:32 Pulse Rate 87 09/12/25 18:32 Respiratory Rate 17 09/12/25 18:32 Blood Pressure 134/84 09/12/25 18:32 Pulse Oximetry 97 09/12/25 18:32 MDM - Extremity (Nontraumatic) Medical Decision Making This patient presented for left knee pain beginning this morning, she had no symptoms of a septic joint as she has been ambulatory, no fevers, no nausea/vomiting, no direct trauma reported. No injury that she knows of. X-ray does not show any acute findings. Treated with steroids and NSAIDs, this is nonspecific left knee pain that is not surgical or emergent but she will be referred to orthopedics for further evaluation of that. Lab Data Radiology Impressions Knee X-Ray 09/12/25 18:45 IMPRESSION: No acute fracture or subluxation. All radiology interpretation(s) finalized by discharge Discharge Plan Discharge Patient Disposition: Home Clinical Impression: Acute pain of left knee Condition: Stable Prescriptions: New ketorolac 10 mg tablet 10 mg PO Q8H PRN (Reason: pain) 5 Days Qty: 15 0RF prednisone 10 mg tablets,dose pack 10 mg PO DIRECTED Qty: 21 0RF Rx Instructions: see taper instructions 6 tablets on day 1, 5 tablets on day 2, 4 tablets on day 3, 3 tablets on day 4, 2 tablets on day 5, and 1 tablet a day 6. P.o. Discharge Orders: Discharge ED (Routine); Ordered 09/12/25 Ordered By: Jean Paul Martinez Referrals: Josesito Rios DO [Primary Care Provider, [facility]] Pro Arnett Jr, MD [Family Provider, [facility]] Patient Instructions: Patient Portal & Belia Instructions Activity Restrictions/Additional Instructions: Knee Pain Discharge Instructions Diagnosis and Next Steps: You have been diagnosed with nonspecific pain in your left knee. Your X-ray did not show any bone or joint damage, and there are no signs of infection. You will be referred to an translational specialist for further evaluation, which may include an MRI and additional assessment. Medications: - Prednisone taper: Take as prescribed. This medication is a steroid that helps reduce inflammation and pain. Follow the dosing schedule exactly and do not stop suddenly unless instructed. - Toradol (ketorolac): Take as directed for pain relief. This is a nonsteroidal anti-inflammatory drug (NSAID). Do not take more than prescribed, and avoid other NSAIDs (like ibuprofen or naproxen) while using Toradol. - Important: Both prednisone and Toradol can increase the risk of stomach irritation, ulcers, and bleeding, especially when used together. Take Toradol with food, and report any stomach pain, black stools, or vomiting blood immediately. Activity and Self-Care: - Rest and protect your knee. Avoid activities that worsen your pain, but try to stay active with gentle movement as tolerated. - Ice your knee for 15-20 minutes every few hours to help with pain and swelling. - Elevate your leg when sitting to reduce swelling. - Physical therapy may be recommended by your translational specialist. Exercise- based therapy is a faria part of recovery and long-term management. Weight Management: If you are overweight, gradual weight loss can help reduce knee pain and improve function. Follow-Up: - Attend your orthopedic appointment as scheduled. - If you develop fever, redness, severe swelling, inability to move your knee, or worsening pain, seek medical attention immediately. Other Considerations: - Do not use knee braces or supports unless recommended by your provider, as their benefit is uncertain for nonspecific pain. - Avoid starting new supplements or medications without consulting your healthcare team. Contact Information: If you have questions or concerns about your medications or symptoms, contact your healthcare provider. Summary: Your current treatment plan focuses on pain relief, reducing inflammation, and preparing for further evaluation. Conservative management, including NSAIDs and physical therapy, is supported by current guidelines for most causes of knee pain. 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
--- NOTE | 2025-09-13 16:06 | PC.NURSE ---
Ortho referral sent.
== END 2025-09-12 20:04 | disposition home or self-care (01) ==
PROVIDERS: Emergency Provider Physician Assistant; Family Provider Family Medicine; PCP Electrodiagnostic Medicine
DX: M25.562 Pain in left knee (principal)
CPT/HCPCS: 73562; 96372; 99284; J1100; J1885

== ENCOUNTER → 2025-09-27 14:54 | Outpatient (BNVA) | payer MEDICARE, SELFPAY | PROVIDERS: Family Provider Family Medicine; PCP Electrodiagnostic Medicine; Visit Provider Orthopaedic Surgery | DX: M25.562 Pain in left knee (principal); Z09 Encounter for follow-up examination after completed treatment for conditions other than malignant neoplasm | CPT/HCPCS: 99203 ==